=== PATIENT | male | born 1940 | race Caucasian/White ===

== ENCOUNTER 2023-02-19 19:46 | Emergency (ER) | payer MEDICARE, OTHER ==
[2023-02-19] MEDS ORDERED: Sodium Chloride 0.9% 500 ML IV ONE (20:00)
[2023-02-19] MEDS ORDERED: Levofloxacin/Dextrose 5%-Water 500 MG in Premix Bag 1 BAG IV ONE (20:05)
[2023-02-19 20:24] LABS: BASOPHILS ABSOLUTE AUTO 0.1 K/mm3 (0.0-0.2); BASOPHILS PERCENT AUTO 0.8 % (0.0-1.0); EOSINOPHILS ABSOLUTE AUTO 0.2 K/mm3 (0.0-0.4); EOSINOPHILS PERCENT AUTO 2.4 % (0.0-6.0); HEMATOCRIT 36.9 % (42.0-52.0); HEMOGLOBIN 11.7 gm/dl (14.0-18.0); IMMATURE GRAN ABSOLUTE AUTO 0.08 K/mm3 (0.00-0.05); IMMATURE GRAN PERCENT AUTO 0.9 % (0.0-0.4); LYMPHOCYTES ABSOLUTE AUTO 1.3 K/mm3 (1.0-4.8); LYMPHOCYTES PERCENT AUTO 15.2 % (24.0-44.0); MEAN CORPUSCULAR HEMOGLOBIN 24.7 pg (28.0-32.0); MEAN CORPUSCULAR HGB CONC 31.7 g/dl (32.0-36.0); MEAN CORPUSCULAR VOLUME 77.8 fl (83.0-99.0); MEAN PLATELET VOLUME 10.3 fl (9.4-12.4); MONOCYTES ABSOLUTE AUTO 0.1 K/mm3 (0.0-0.8); MONOCYTES PERCENT AUTO 1.6 % (0.0-8.0); NEUTROPHILS ABSOLUTE AUTO 6.9 K/mm3 (1.8-7.7); NEUTROPHILS PERCENT AUTO 79.1 % (41.0-71.0); PLATELET COUNT,PLT 295 K/mm3 (150-400); RED BLOOD CELL COUNT 4.74 M/mm3 (4.52-5.90); WHITE BLOOD CELL COUNT,WBC 8.74 K/mm3 (3.9-11.3)
[2023-02-19 20:30] LABS: BASE EXCESS ARTERIAL -5.8 (-2-2.0); BICARBONATE,ARTERIAL 20.1 meq/L (22.0-26.0); O2 SATURATION ARTERIAL 92.7 % (96.0-97.0); PCO2 ARTERIAL 43.6 mmHg (35.0-45.0)
[2023-02-19 20:48] LABS: A/G RATIO 1.1 (1-2); ALANINE AMINOTRANSFERASE,ALT 19 U/L (16-63); ALBUMIN 3.4 g/dl (3.4-5.0); ALKALINE PHOSPHATASE 63 U/L (46-116); ASPARTATE AMNIOTRANSFERASE,AST 25 U/L (15-37); BILIRUBIN TOTAL 0.7 mg/dL (0.2-1.0); BLOOD UREA NITROGEN,BUN 33 mg/dL (7-18); BUN/CREATININE RATIO 15.7 (14-18); CALCIUM 9.1 mg/dL (8.5-10.1); CARBON DIOXIDE,CO2 22 mEq/L (21-32); CHLORIDE,CL 101 mEq/L (98-107); CREATININE 2.1 mg/dL (0.7-1.3); ESTIMATED GFR 30 mL/min (>60); GLUCOSE RANDOM 190 mg/dL (70-99); PROTEIN TOTAL,TP 6.5 g/dl (6.4-8.2); SODIUM,NA 136 mEq/L (136-145); TROPONIN I HIGH SENSITIVITY 14 pg/mL (<=76)
[2023-02-19 21:01] LABS: LACTIC ACID 3.5 mmol/L (0.4-2.0)
[2023-02-19] MEDS ORDERED: Morphine 4 MG/ML Syringe IVPUSH ONE (22:12)
[2023-02-19] MEDS ORDERED: Naloxone 0.4 MG/ML SDV IVPUSH PRN (22:12)
[2023-02-19] MEDS ORDERED: Ondansetron 4 MG/2 ML SDV IVPUSH ONE (22:12)
[2023-02-19] MEDS ORDERED: HYDROmorphone 0.5 MG/0.5 ML Syringe IVPUSH ONE (22:57)
[2023-02-19] MEDS ORDERED: metroNIDAZOLE/Normal Saline 500 MG in Premix Bag 1 BAG IV ONE (23:08)
[2023-02-19] MEDS ORDERED: Lactated Ringers 1,000 ML ONE (23:57)
[2023-02-19] MEDS ORDERED: Lactated Ringers 1,000 ML IV ONE (23:57)
[2023-02-20 08:19] VITALS: PULSE 63
[2023-02-20 08:21] VITALS: BP 87/46
== END 2023-02-20 00:30 | disposition expired ==
LOC: JD.ED 19:46
DX: I46.9 Cardiac arrest, cause unspecified (principal); E87.20 Acidosis, unspecified; K59.09 Other constipation; M19.90 Unspecified osteoarthritis, unspecified site; Z95.0 Presence of cardiac pacemaker; Z79.82 Long term (current) use of aspirin; Z79.899 Other long term (current) drug therapy; Z88.8 Allergy status to other drugs, medicaments and biological substances; Z91.018 Allergy to other foods; Z91.030 Bee allergy status; Z88.1 Allergy status to other antibiotic agents
CPT/HCPCS: 36415; 36600; 71250; 74176; 80053; 82803; 83605; 84484; 85025; 87040; 93005; 96361; 96365; 96367; 96375; 99285; J1170; J1836; J1956; J2270; J2405; J7030; J7120